=== PATIENT | female | born 1960 | race Caucasian/White ===

== ENCOUNTER 2021-08-27 17:27 | Inpatient (IN) | payer BC ==
[~2021-08-27] VITALS: Ht 172.7 cm; Wt 135.2 kg
[2021-08-27 18:15] LABS: HEMOGLOBIN 14.8 gm/dl (12.3-15.3); RED BLOOD COUNT 4.75 M/UL (4.00-5.10); WHITE BLOOD COUNT 14.8 K/UL (4.5-11.0)
[2021-08-27 19:05] LABS: BUN/CREATININE RATIO 17 (0-10)
[2021-08-28 06:39] LABS: HEMOGLOBIN 13.7 gm/dl (12.3-15.3); RED BLOOD COUNT 4.36 M/UL (4.00-5.10)
[2021-08-28 06:46] LABS: WHITE BLOOD COUNT 10.6 K/UL (4.5-11.0)
[2021-08-28] MEDS ORDERED: METOPROLOL TART50 MG PO (09:43)
[2021-08-28] MEDS ORDERED: PRAVASTATIN SOD40 MG PO (09:43)
[2021-08-28] MEDS ORDERED: METFORMIN HCL500 M2 PO (09:43)
[2021-08-28] MEDS ORDERED: VALSARTAN80 MG PO (09:43)
[2021-08-28] MEDS ORDERED: PREGABALIN100 MG PO (09:44)
[2021-08-28] MEDS ORDERED: CETIRIZINE HCL10 MG PO (09:44)
[2021-08-28] MEDS ORDERED: IXEKIZUMAB INJ (09:45)
[2021-08-28] MEDS ORDERED: ASPIRIN EC81 MG PO (09:45)
[2021-08-28] MEDS ORDERED: DEMADEX 20 MG T20 MG PO (09:46)
[2021-08-28 16:19] LABS: BUN/CREATININE RATIO 16 (0-10)
--- NOTE | 2021-08-29 10:33 | NUR ---
1033- NOTIFIED DR KNAPP OF PT VOMITING,NAUSEA AND STATED SHE HAD NOT HAD A BOWEL MOVEMENT IN 4 DAYS. STATED HE WILL ORDER MEDICATION. WILL CONTINUE TO MONITOR.
--- NOTE | 2021-08-29 17:15 | NUR ---
08/29/21 1715- [facility] PASS[facility] LILIANA
[2021-08-30 04:26] LABS: RED BLOOD COUNT 4.6 M/UL (4.00-5.10)
[2021-08-30 04:28] LABS: WHITE BLOOD COUNT 7.4 K/UL (4.5-11.0)
[2021-08-30 04:51] LABS: BUN/CREATININE RATIO 16 (0-10)
[2021-08-30 07:11] LABS: HEMOGLOBIN A1C 8.8 % (4.8-5.6)
[2021-08-31] MEDS ORDERED: ROBAXIN 750 MG750 MG PO (11:36)
[2021-08-31] MEDS ORDERED: ZOFRAN 4 MG TAB4 MG PO (11:45)
[2021-08-31] MEDS ORDERED: PERCOCET 7.5-31 EACH PO (11:45)
== END 2021-08-31 14:16 | disposition home or self-care (01) | DRG 555 ==
LOC: ER1 17:27 → MED SURG 4 22:33 → CDU 22:33 → MED SURG 4 08-28 02:02
PROVIDERS: Internal Medicine; Nurse Practitioner; ADMIT Internal Medicine Infectious Disease
DX: M25.511 Pain in right shoulder (principal); J96.21 Acute and chronic respiratory failure with hypoxia; Z20.822 Contact with and (suspected) exposure to COVID-19; E87.2 Acidosis; E66.2 Morbid (severe) obesity with alveolar hypoventilation; E87.1 Hypo-osmolality and hyponatremia; Z68.42 Body mass index [BMI] 45.0-49.9, adult; G89.29 Other chronic pain; L40.9 Psoriasis, unspecified; M54.9 Dorsalgia, unspecified; I10 Essential (primary) hypertension; E78.5 Hyperlipidemia, unspecified; M62.838 Other muscle spasm; E11.9 Type 2 diabetes mellitus without complications; E86.0 Dehydration; Z79.4 Long term (current) use of insulin; Z79.01 Long term (current) use of anticoagulants; Z79.82 Long term (current) use of aspirin; Z90.49 Acquired absence of other specified parts of digestive tract; Z83.3 Family history of diabetes mellitus
CPT/HCPCS: 96372; 96375; 96376; 0240U; 36600; 71045; 80048; 80053; 81001; 82550; 82553; 82803; 82962; 83036; 83605; 83690; 83735; 83880; 84100; 84484; 85025; 85379; 85652; 86140; 87040; 93005; 96365; 96366; 97161; 97166; 97530; 99285; G0378; J0696; J1650; J1885; J1940; J2270; J2360; J2405; J2550; J3370; Q9967